=== PATIENT | female | born 1930 | race Two or more races ===

== ENCOUNTER 2017-02-03 06:50 | Day surgery (SDC) | payer OTHER ==
[2017-02-03] MEDS ORDERED: FLURBIPROFEN 0.03% OPHT DROP 2.5 ML BOTTLE ONE (07:17)
[2017-02-03] MEDS ORDERED: CIPROFLOXACIN 0.3% OPHT DROP 2.5 ML BOTTLE ONE (07:18)
[2017-02-03] MEDS ORDERED: TROPICAMIDE 1% OPHT DROP 3 ML BOTTLE ONE (07:18)
[2017-02-03] MEDS ORDERED: CYCLOPENTOLATE 1% OPHT DROP 2 ML BOTTLE ONE (07:19)
[2017-02-03] MEDS ORDERED: PHENYLEPHRINE 2.5% OPHT DROP 2 ML BOTTLE ONE (07:19)
[2017-02-03] MEDS ORDERED: LIDOCAINE-MPF 2% 5 ML VIAL ONE (07:35)
[2017-02-03] MEDS ORDERED: NEO/POLYMYX B/DEXAME OPHT OINT 3.5 GM TUBE ONE (07:36)
[2017-02-03] MEDS ORDERED: EPINEPHRINE 1 MG/1 ML AMP ONE (07:36)
[2017-02-03] MEDS ORDERED: TIMOLOL MALEATE 0.5% OPHT DROP 5 ML BOTTLE ONE (07:36)
[2017-02-03] MEDS ORDERED: BALANCED SALT IRRIG SOLN COMB2 15 ML IRRIG.SOLN ONE (07:36)
[2017-02-03] MEDS ORDERED: LIDOCAINE HCL-MPF 1% 5 ML VIAL ONE (07:36)
[2017-02-03] MEDS ORDERED: TETRACAINE HCL 0.5% OPHT DROP 2 ML BOTTLE ONE (07:36)
[2017-02-03] MEDS ORDERED: BUPIVACAINE PF 0.5% 30 ML VIAL ONE (07:37)
[2017-02-03] MEDS ORDERED: ACETYLCHOLINE CHLORIDE 1% OPHT 1 EA KIT ONE (07:37)
[2017-02-03] MEDS ORDERED: HYALURONATE SODIUM 8.5 MG/0.85 ML DISP.SYRIN ONE (07:38)
[2017-02-03] MEDS ORDERED: HYALURONATE SODIUM 12.8 MG/0.8 ML DISP.SYRIN ONE (07:38)
[2017-02-03] MEDS ORDERED: HYALURONIDASE,OVINE 200 UNITS/ML VIAL ONE (07:38)
[2017-02-03] MEDS ORDERED: VANCOMYCIN FOR CATARACT SURGERY MC ONE ×2 (08:00)
[2017-02-03] MEDS ORDERED: BALANCED SALT IRRIG SOLN COMB1 500 ML, VANCOMYCIN FOR BSS PLUS 10 MG, GENTAMICIN SULFAT... IO ONE ×4 (08:00)
[2017-02-03] MEDS ORDERED: FENTANYL CITRATE 100 MCG/2 ML AMPUL ONE (08:28)
[2017-02-03] MEDS ORDERED: BALANCED SALT IRRIG SOLN COMB1 0 ML ONE (09:05)
[2017-02-03] MEDS ORDERED: IV NORMAL SALINE 1000 ML BAG IV ONE (11:39)
== END 2017-02-03 10:30 | disposition home or self-care (01) ==
LOC: DS 06:50 → EDBD 06:50 → DS 10:30
PROVIDERS: ATTEND Ophthalmology
DX: H26.9 Unspecified cataract (principal); E11.9 Type 2 diabetes mellitus without complications; I10 Essential (primary) hypertension; D64.9 Anemia, unspecified; E03.9 Hypothyroidism, unspecified; G62.9 Polyneuropathy, unspecified
CPT/HCPCS: 71010; A4663; J0171; J1580; J3010; J3370; J3471; J3490; J7030; J7321; V2632

== ENCOUNTER 2017-04-07 06:43 | Day surgery (SDC) | payer OTHER ==
[2017-04-07] MEDS ORDERED: BALANCED SALT IRRIG SOLN COMB1 500 ML, VANCOMYCIN FOR BSS PLUS 10 MG, GENTAMICIN SULFAT... IO ONE (07:00)
[2017-04-07] MEDS ORDERED: TIMOLOL MALEATE 0.5% OPHT DROP 5 ML BOTTLE ONE (07:03)
[2017-04-07] MEDS ORDERED: TETRACAINE HCL 0.5% OPHT DROP 2 ML BOTTLE ONE (07:03)
[2017-04-07] MEDS ORDERED: NEO/POLYMYX B/DEXAME OPHT OINT 3.5 GM TUBE ONE (07:03)
[2017-04-07] MEDS ORDERED: LIDOCAINE-MPF 2% 5 ML VIAL ONE (07:03)
[2017-04-07] MEDS ORDERED: BALANCED SALT IRRIG SOLN COMB2 15 ML IRRIG.SOLN ONE (07:04)
[2017-04-07] MEDS ORDERED: LIDOCAINE HCL-MPF 1% 5 ML VIAL ONE (07:04)
[2017-04-07] MEDS ORDERED: ACETYLCHOLINE CHLORIDE 1% OPHT 1 EA KIT ONE (07:04)
[2017-04-07] MEDS ORDERED: EPINEPHRINE 1 MG/1 ML AMP ONE (07:04)
[2017-04-07] MEDS ORDERED: HYALURONATE SODIUM 12.8 MG/0.8 ML DISP.SYRIN ONE (07:05)
[2017-04-07] MEDS ORDERED: BUPIVACAINE PF 0.5% 30 ML VIAL ONE (07:05)
[2017-04-07] MEDS ORDERED: HYALURONATE SODIUM 8.5 MG/0.85 ML DISP.SYRIN ONE (07:05)
[2017-04-07] MEDS ORDERED: HYALURONIDASE,OVINE 200 UNITS/ML VIAL ONE (07:05)
[2017-04-07] MEDS ORDERED: FLURBIPROFEN 0.03% OPHT DROP 2.5 ML BOTTLE ONE (07:07)
[2017-04-07] MEDS ORDERED: CIPROFLOXACIN 0.3% OPHT DROP 2.5 ML BOTTLE ONE (07:07)
[2017-04-07] MEDS ORDERED: CYCLOPENTOLATE 1% OPHT DROP 2 ML BOTTLE ONE (07:07)
[2017-04-07] MEDS ORDERED: TROPICAMIDE 1% OPHT DROP 3 ML BOTTLE ONE (07:08)
[2017-04-07] MEDS ORDERED: PHENYLEPHRINE 2.5% OPHT DROP 2 ML BOTTLE ONE (07:08)
[2017-04-07] MEDS ORDERED: hydrALAZINE HCL 20 MG/1 ML VIAL IM ONE (07:25)
[2017-04-07] MEDS ORDERED: ONDANSETRON 4 MG/2 ML VIAL IV ONE (07:25)
[2017-04-07] MEDS ORDERED: IV NORMAL SALINE 1000 ML BAG IV ONE (07:26)
[2017-04-07] MEDS ORDERED: VANCOMYCIN FOR CATARACT SURGERY MC ONE (08:00)
[2017-04-07] MEDS ORDERED: FENTANYL CITRATE 100 MCG/2 ML AMPUL ONE (08:26)
[2017-04-07] MEDS ORDERED: BALANCED SALT IRRIG SOLN COMB1 0 ML ONE (09:16)
[2017-04-07] MEDS ORDERED: ONDANSETRON 4 MG/2 ML VIAL ONE (10:12)
[2017-04-07 10:45] VITALS: TEMP 98.2
== END 2017-04-07 11:12 | disposition home or self-care (01) ==
LOC: DS 06:43
PROVIDERS: ATTEND Ophthalmology
DX: H26.9 Unspecified cataract (principal); K21.9 Gastro-esophageal reflux disease without esophagitis; E11.42 Type 2 diabetes mellitus with diabetic polyneuropathy; I10 Essential (primary) hypertension; E03.9 Hypothyroidism, unspecified; I70.0 Atherosclerosis of aorta; Z98.890 Other specified postprocedural states; M25.569 Pain in unspecified knee; M51.36 Other intervertebral disc degeneration, lumbar region
CPT/HCPCS: 66984; 82962 ×2; A4663; J0171 ×2; J0360; J1580; J2405 ×2; J3010; J3370 ×2; J3471; J3490 ×3; J7030 ×2; J7321 ×2; V2632